=== PATIENT | male | born 1940 | race Caucasian/White ===

== ENCOUNTER 2022-03-16 17:08 | Emergency (ER) | payer MEDICARE, SELFPAY ==
[2022-03-16] VITALS (8 sets, daily range): BP systolic 105–142; BP diastolic 66–84; PULSE 75–79; RESP 12–22; TEMP 36.6; O2SAT 95–98; BMI 27.8
--- NOTE | 2022-03-16 17:08 | ECG_ITS ---
APPROVED REPORT Exam: Resting ECG HR:71 bpm ECG Measurements Heart Rate 71 AXES NC 185 P 61 QRSd 90 QRS 41 QT 373 T 4 QTc 395 Conclusion SINUS RHYTHM WITH SINUS ARRHYTHMIA NONSPECIFIC T-WAVE ABNORMALITY BORDERLINE ECG UNCONFIRMED REPORT Electronically signed by : Glenn Merino MD 03/17/2022 21:31:17
--- NOTE | 2022-03-16 17:28 | XR_ITS ---
PROCEDURE INFORMATION: Exam: XR Chest Exam date and time: 03/16/2022 5:53 PM Age: 82 years old Clinical indication: Shortness of breath; Additional info: Syncope TECHNIQUE: Imaging protocol: XR of the chest. Views: 1 view. COMPARISON: No relevant prior studies available. FINDINGS: Lungs: Unremarkable. No consolidation. Pleural spaces: Unremarkable. No pleural effusion. No pneumothorax. Heart/Mediastinum: Unremarkable. No cardiomegaly. Bones/joints: Unremarkable. IMPRESSION: No acute findings.
[2022-03-16 17:39] LABS: Basophils # 0.1 K/mm3 (0-0.2); Basophils % 2.8 % (0.1-2.0); Chloride 105 mmol/L (98-107); Eosinophils # 0.4 K/mm3 (0.0-0.4); Eosinophils % 8.1 % (0.1-12.0); Hematocrit 40.8 % (42.0-52.0); Hemoglobin 13.6 g/dL (14.1-18.0); Lymphocytes # 1.9 K/mm3 (0.7-4.5); Lymphocytes % 41.7 % (10-50); Mean Corpuscular HGB Conc 33.4 g/dL (31.8-35.4); Mean Corpuscular Hemoglobin 34.9 pg (27.0-31.2); Mean Corpuscular Volume 104.7 fl (80-94); Mean Platelet Volume 9.4 fl (7.4-10.4); Monocytes # 0.3 K/mm3 (0.1-1.0); Monocytes % 6.1 % (1.7-9.3); Neutrophils # 1.9 K/mm3 (1.8-7.8); Neutrophils % 41.2 % (37.0-80.0); Platelet Count 166 K/mm3 (142-424); Red Cell Distribution Width 14.1 % (11.5-17.5); Sodium 138 mmol/L (136-145); White Blood Count 4.6 K/mm3 (4.8-10.8)
[2022-03-16 17:41] LABS: Blood Urea Nitrogen 19 mg/dl (9-20); Creatinine Clearance Estimated 69 mL/min (50-200); Estimated Glomerular Filt Rate 81 ml/min (>60); GFR (African American) 98 ML/MIN (>60); Magnesium 1.7 mg/dl (1.6-2.3)
[2022-03-16 17:42] LABS: Alanine Aminotransferase 26 U/L (12-78); Albumin Level 4.3 g/dl (3.5-5.0); Albumin/Globulin Ratio 1.6 (1.1-1.8); Alkaline Phosphatase 41 U/L (38-126); Aspartate Amino Transferase 33 U/L (17-59); Bilirubin,Total 0.9 mg/dl (0.2-1.3); Calcium 9.9 mg/dl (8.4-10.2); Carbon Dioxide 23 mmol/L (22.0-30.0); Globulin 2.7 g/dL (1.3-3.2); Glucose 172 mg/dl (74-100)
--- NOTE | 2022-03-16 17:47 | HMH.EDSYNC ---
ED Disposition Clinical Impression: Syncope and collapse Disposition: Home, Self-Care Condition on Discharge: Good Instructions: DI for Syncope in Adults (Fainting), DI for Syncope in Children (Fainting) Additional Instructions: Follow-up with your casino manager and return to the nearest ER if you have worsening or new symptoms. Referrals: Provider,Referral, [Primary Care Provider] - Time of Disposition: 19:18 - Critical Care Critical Care Time: No Attestation: On 03/16/22, the high probability of a clinically significant, sudden or life threatening deterioration of the following system(s) required my full and direct attention, intervention and personal management. The time I documented below is in addition to time spent performing reported procedures but includes the following listed in this critical care notation. Medical Decision Making - Medical Records Medical records reviewed: Yes: I reviewed the patient's medical records. - Allen Inquiry Pt receiving controlled substance: No Vital Signs: 03/16/22 17:11 03/16/22 17:58 Temperature 97.8 F Temperature Source Oral Pulse Rate 75 Pulse Rate [Right Radial] 77 Respiratory Rate 12 18 Blood Pressure 142/66 H Blood Pressure [Right Arm] 135/73 Blood Pressure Mean 91 Blood Pressure Mean [Right Arm] 93 Blood Pressure Source [Right Arm] Automatic Cuff Blood Pressure Position [Right Arm] Sitting 02 Sat by Pulse Oximetry 95 97 Oxygen Delivery Method Room Air - Lab Data Lab Results 03/16/22 17:22: WBC 4.6 L, RBC 3.90 L, Hgb 13.6 L, Hct 40.8 L, MCV 104.7 H, MCH 34.9 H, MCHC 33.4, RDW 14.1, Plt Count 166, MPV 9.4, Neut % (Auto) 41.2, Lymph % (Auto) 41.7, Allen % (Auto) 6.1, Eos % (Auto) 8.1, Baso % (Auto) 2.8 H, Neut # (Auto) 1.9, Lymph # (Auto) 1.9, Allen # (Auto) 0.3, Eos # (Auto) 0.4, Baso # (Auto) 0.1 03/16/22 17:22: Sodium 138, Potassium 4.0, Chloride 105, Carbon Dioxide 23, Anion Gap 14.0, BUN 19, Creatinine 0.90, Estimated Creat Clear 69, Estimated GFR 81, Est GFR ( Amer) 98, Glucose 172 H, Calcium 9.9, Total Bilirubin 0.9, AST 33, ALT 26, Alkaline Phosphatase 41, Troponin I < 0.01, Total Protein 7.0, Albumin 4.3, Globulin 2.7, Albumin/Globulin Ratio 1.6 03/16/22 17:22: Magnesium 1.7 Result diagrams: 03/16/22 17:22 03/16/22 17:22 Orders (Tests/Meds): ED MEDICATIONS Discontinued Medications Generic Name Dose Route Start Last Admin Trade Name Freq PRN Reason Stop Dose Admin Sodium Chloride 1,000 mls @ 999 mls/hr 03/16/22 17:30 03/16/22 17:48 Sod Chlor 0.9% 1000ml Bag IV 03/16/22 18:30 999 mls/hr .Q1H1M WIL Administration ORDERS Category Date Time Status Troponin I Q3H Lab 03/16/22 20:30 Ordered Troponin I Q3H Lab 03/16/22 23:30 Ordered - Radiology Data #1 Image Reviewed: Yes I have reviewed radiologist's interpretation Preliminary Findings: Normal/NAD Patient: Joanne Kate MR#: [id number] : 08/15/1954 Acct:[id number] Age/Sex: 67 / F ADM Date: 03/16/22 Loc: ER Attending Dr: Ordering Physician: Cayetano Khan MD Date of Service: 03/16/22 Procedure(s): XR chest portable Accession Number(s): [id number] cc: Rashaun Olsen MD; Monica Valladares ~ PROCEDURE INFORMATION: Exam: XR Chest Exam date and time: 03/16/2022 5:50 PM Age: 67 years old Clinical indication: Pain; Chest pressure; Additional info: Cp TECHNIQUE: Imaging protocol: XR of the chest. Views: 1 view. COMPARISON: No relevant prior studies available. FINDINGS: Lungs: Mild bibasilar atelectasis. Pleural spaces: Unremarkable. No pleural effusion. No pneumothorax. Heart/Mediastinum: Unremarkable. No cardiomegaly. Vasculature: Vascular calcifications. Bones/joints: Old left humeral deformity. IMPRESSION: No acute findings. - ECG Data Tracing #1 EKG interpretation sinus rhythm with sinus arrhythmia ventricular rate of 71 OR 185 QTC 395 nons
--- NOTE | 2022-03-16 17:47 | PC.NURSE ---
patient family came out asking if patient can have some water. [facility] is going in with patient and she would take him some water. Dr. Khan Ok'd it.
--- NOTE | 2022-03-16 17:54 | PC.NURSE ---
Radiology bedside doing chest x-ray.
[2022-03-16 17:55] LABS: Troponin I < 0.01 ng/ml (0.00-0.034)
== END 2022-03-16 19:45 | disposition home or self-care (01) ==
PROVIDERS: Emergency Provider Student in an Organized Health Care Education/Training Program
DX: R55 Syncope and collapse (principal); J98.11 Atelectasis; R00.1 Bradycardia, unspecified; R61 Generalized hyperhidrosis
CPT/HCPCS: 71045; 80053; 83735; 84484; 85025; 93005; 96360; 99284